=== PATIENT | female | born 1990 | race Caucasian/White ===

== ENCOUNTER → 2016-06-25 | Outpatient (CLI) | payer SELFPAY ==
--- NOTE | 2016-06-26 07:14 | RAD ---
CLINICAL HISTORY:GENERALIZED ABDOMINAL PAIN. :1990.Sex:Female. TECHNIQUE: Supine and upright views of the abdomen. There is no intestinal dilatation. Cholecystectomy clips are noted.There is no mass. There is no free air. There is no opaque calculus. Skeletal structures are unremarkable. The visible lung bases are clear IMPRESSION: 1. No acute radiographic findings.. 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
--- NOTE | 2016-07-15 23:55 | RAD ---
CLINICAL HISTORY:GENERALIZED ABDOMINAL PAIN. :1990.Sex:Female. TECHNIQUE: Supine and upright views of the abdomen. There is no intestinal dilatation. Cholecystectomy clips are noted.There is no mass. There is no free air. There is no opaque calculus. Skeletal structures are unremarkable. The visible lung bases are clear IMPRESSION: 1. No acute radiographic findings.. 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
== END | disposition home or self-care (01) ==
LOC: RAD 14:19
PROVIDERS: ATTEND Nurse Practitioner Family
DX: R10.84 Generalized abdominal pain (principal)

== ENCOUNTER → 2016-07-02 | Outpatient (CLI) | payer SELFPAY ==
--- NOTE | 2016-07-02 13:13 | RAD ---
EXAM DESCRIPTION: Abdomen radiography. CLINICAL HISTORY: Chronic idiopathic constipation COMPARISON: June 25, 2016 TECHNIQUE: One view. FINDINGS: Bowel gas pattern is non-obstructed. There is no obvious free intraperitoneal air. Visualized segments of the abdominal organs are unremarkable. No suspicious bone lesion or fracture is seen. IMPRESSION: No significant abnormality. Electronically signed by: Hema Cuello MD 07/02/2016 13:11
== END | disposition home or self-care (01) ==
LOC: RAD 12:03
PROVIDERS: ATTEND Nurse Practitioner Family
DX: K59.04 Chronic idiopathic constipation (principal)

== ENCOUNTER → 2016-07-06 | Outpatient (CLI) | payer SELFPAY ==
--- NOTE | 2016-07-06 13:27 | RAD ---
EXAM DESCRIPTION: Abdomen radiography. CLINICAL HISTORY: Abdominal pain. COMPARISON: July 02, 2016 TECHNIQUE: One view. FINDINGS: Bowel gas pattern is non-obstructed. There is no obvious free intraperitoneal air. Visualized segments of the abdominal organs are unremarkable. No suspicious bone lesion or fracture is seen. IMPRESSION: Significantly less stool noted within the colon on today's study. Electronically signed by: Hema Cuello MD 07/06/2016 13:26
== END | disposition home or self-care (01) ==
LOC: RAD 10:57
PROVIDERS: ATTEND Nurse Practitioner Family
DX: K59.04 Chronic idiopathic constipation (principal)

== ENCOUNTER → 2016-11-09 | Outpatient (CLI) | payer MEDICAID | END | disposition home or self-care (01) | LOC: LAB.O 10:09 | PROVIDERS: ATTEND Obstetrics & Gynecology | DX: Z34.81 Encounter for supervision of other normal pregnancy, first trimester (principal); Z3A.01 Less than 8 weeks gestation of pregnancy ==

== ENCOUNTER 2016-11-16 22:32 | Emergency (ER) | payer MEDICAID ==
--- NOTE | 2016-11-16 23:11 | ED.PDOC ---
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 She is concerned because she is 7.5 weeks and she had a demise @ 24 weeks with her last . She has no vaginal bleeding or spotting. Denies urinary symptoms but is having frequency. Timing/Duration: yesterday Quality: moderate, sharpness, stabbing Onset Location: suprapubic Radiation: none Activites at Onset: none Sexual intercourse history: single partner Improving Factors: nothing Worsening Factors: nothing Associated Symptoms: abdominal pain, urinary frequency Allergies/Adverse Reactions: Allergies Penicillins Allergy (Verified 05/07/16 14:59) Rash Home Medications: Ambulatory Orders Control Pill 1 each PO DAILY 05/07/16 Naproxen [Naprosyn] 500 mg PO BID PRN #30 tab 05/07/16 Nitrofurantoin Monohydrate Mac [Macrobid] 100 mg PO BID #14 cap 11/16/16 Review of Systems - Review of Systems Constitutional: States: no symptoms reported Respiratory: States: no symptoms reported Cardiology: States: no symptoms reported Gastrointestinal/Abdominal: States: abdominal pain. Denies: constipation, diarrhea, nausea, vomiting Genitourinary: States: see HPI, frequency Musculoskeletal: States: no symptoms reported Skin: States: no symptoms reported All other Systems: No Change from Baseline Past Medical History (General) - Patient Medical History Hx Stroke: No Hx of COPD: Yes Hx Congestive Heart Failure: No Hx Diabetes: No Hx MRSA: No - Vaccination History Hx Tetanus, Diphtheria Vaccination: No Hx Influenza Vaccination: No Hx Pneumococcal Vaccination: No - Social History Hx Tobacco Use: Yes - Female History Patient : No Family Medical History - Family History Father Family History: No Known Living Status: Still Living Physical Exam - Physical Exam General Appearance: Alert, Comfortable, No apparent distress, Well Developed, Well Groomed, Well Hydrated, Well Nourished Cardiovascular/Respiratory: no respiratory distress Gastrointestinal/Abdominal: normal bowel sounds, soft, tenderness - generalized abd tenderness - unchanged from baseline per patient, w/o guarding or rebound. Back Exam: no CVA tenderness Extremity: normal range of motion, non-tender, normal inspection Neurologic: alert, normal mood/affect, oriented x 3 Skin Exam: normal color, warm/dry Progress - Progress Progress: 11/16/16 23:40 Discussed symptoms and urine results. I think her symptoms are from a UTI and not an issue with the . Will start Macrobid and have her follow up with her LEATHER SEASONER next week. - Results/Orders Results/Orders: Laboratory Tests 11/16/16 23:15 Urine Color Yellow Urine Appearance Sl cloudy Urine pH 6.5 Ur Specific [place] 1.015 Urine Protein Negative Urine Glucose (UA) Negative Urine Ketones Negative Urine Blood Trace-intact H Urine Nitrite Negative Urine Bilirubin Negative Urine Urobilinogen 0.2 Ur Leukocyte Esterase Moderate H Urine RBC 1-3 Urine WBC 10-20 H Ur Epithelial Cells 10-20 Urine Bacteria 1+ Urine Trichomonas 1-3 H Departure - Departure Clinical Impression: Urinary tract infection Qualifiers: Urinary tract infection type: acute cystitis Hematuria presence: with hematuria Qualified Code(s): N30.01 - Acute cystitis with hematuria Time of Disposition: 23:41 Disposition: Discharge to Home or Self Care Condition: Good Departure Forms: ED Discharge - Pt. Copy, Patient Portal Self Enrollment Instructions: DI for Urinary Tract Infection (UTI) Diet: resume usual diet Activity: increase activity as tolerated Referrals: ANTONIO JOYCE [facility] WORK[facility] [Primary Care Provider] - 1-2 Weeks Prescriptions: Nitrofurantoin Monohydrate Mac [Macrobid] 100 mg PO BID #14 cap Home Medications: Ambulatory Orders Control Pill 1 each PO DAILY 05/07/16 Naproxen [Naprosyn] 500 mg PO BID PRN #30 tab 05/07/16 Nitrofurantoin Monohydrate Mac [Macrobid] 100 mg PO BID #14 cap 11/16/16 Additional Instructions: Follow up with your OB next week.
[2016-11-16] MEDS ORDERED: NITROFURANTOIN MONOHYDRATE MAC 100 MG CAP PO ONE (23:41)
[2016-11-17 00:40] VITALS: BP 104/71; O2SAT 96
[2016-11-17 01:01] VITALS: TEMP 99.3
== END 2016-11-17 01:01 | disposition home or self-care (01) ==
LOC: ER 22:32
DX: O23.11 Infections of bladder in pregnancy, first trimester (principal); Z3A.01 Less than 8 weeks gestation of pregnancy; J44.9 Chronic obstructive pulmonary disease, unspecified; Z88.0 Allergy status to penicillin; Z79.899 Other long term (current) drug therapy; Z87.891 Personal history of nicotine dependence

== ENCOUNTER 2016-11-22 22:33 | Emergency (ER) | payer MEDICAID, OTHER ==
[2016-11-22] MEDS ORDERED: SODIUM CHLORIDE 0.9% 50ML 50 ML ONE (23:00)
[2016-11-22] MEDS ORDERED: PROMETHAZINE HCL INJ 25 MG/ML VIAL ONE (23:00)
[2016-11-22] MEDS: PROMETHAZINE HCL INJ 25 MG in SODIUM CHLORIDE 0.9% 50ML 50 ML IVPB ONE (23:03)
[2016-11-22] MEDS: SUCRALFATE 1 GM/10 ML 1 GM UD PO ONE (23:03)
[2016-11-22] MEDS ORDERED: LIDOCAINE 1% 10 ML VIAL INJ ONE (23:06)
[2016-11-22] MEDS: cefTRIAXone SODIUM 1 GM VIAL IM ONE (23:06)
[2016-11-22] MEDS: SODIUM CHLORIDE 0.9% 1000ML 1,000 ML IVS ONE (23:06)
[2016-11-22] MEDS: ALUMINUM & MAGNESIUM HYDROXIDE 30 ML UD PO ONE (23:41)
[2016-11-22] MEDS: metroNIDAZOLE 500 MG TAB PO ONE (23:41)
--- NOTE | 2016-11-23 00:54 | ED.PDOC ---
History of Present Illness - General Chief Complaint: GI Problem Stated Complaint: N/V/D Time Seen by Provider: 11/22/16 22:36 Source: patient Exam Limitations: no limitations - History of Present Illness Initial Comments: the patient is a 25-year-old female presenting to the emergency room secondary to nausea and vomiting and diarrhea that started 1-2 hours prior to arrival. The patient has been having some mild nausea with her . She is approximately 8 weeks according to her. She has been having some mild nausea but no real vomiting. She is only been taking her vitamins. The patient started taking Keflex today for a dental infection along with Tylenol 3. Soon after she took her doses of medication she started throwing up and having some diarrhea. No fevers. No blood in the stool or vomitus. She has responded nicely to antibiotics here. She she is not having any abdominal pain. Timing/Duration: 1 hour Severity: moderate Improving Factors: nothing Worsening Factors: nothing Associated Symptoms: nausea/vomiting Allergies/Adverse Reactions: Allergies Metformin Allergy (Severe, Verified 11/22/16 23:00) Rash Penicillins Allergy (Verified 11/22/16 23:00) Rash Home Medications: Ambulatory Orders Nitrofurantoin Monohydrate Mac [Macrobid] 100 mg PO BID #14 cap 11/16/16 Acetaminophen W/ Codeine [Tylenol W/ CODEINE #3] 1 ea PO Q6HR PRN 11/22/16 Cephalexin Monohydrate [Keflex] 500 mg PO BID 11/22/16 Promethazine HCl 25 mg PO Q6H PRN #10 tab 11/23/16 Promethazine HCl [Phenergan] 25 mg [place] Q6H PRN #10 sup 11/23/16 Sucralfate Tab [Carafate Tab] 1 gm PO QID #60 tab 11/23/16 Review of Systems - Review of Systems Constitutional: States: no symptoms reported EENTM: States: mouth pain - dental pain Respiratory: States: no symptoms reported Cardiology: States: no symptoms reported Gastrointestinal/Abdominal: States: nausea, vomiting Genitourinary: States: no symptoms reported Musculoskeletal: States: no symptoms reported Skin: States: no symptoms reported Neurological: States: no symptoms reported Endocrine: States: increased thirst All other Systems: No Change from Baseline Past Medical History (General) - Patient Medical History Hx Seizures: No Hx Stroke: No Hx Dementia: No Hx Asthma: Yes Hx of COPD: No Hx Cardiac Disorders: No Hx Congestive Heart Failure: No Hx Pacemaker: No Hx Hypertension: No Hx Thyroid Disease: No Hx Diabetes: No Hx Gastroesophageal Reflux: Yes Hx Renal Disease: No Hx Cancer: No Hx of HIV: No Hx Hepatitis C: No Hx MRSA: No Surgical History: cholecystectomy, tonsillectomy - Vaccination History Hx Tetanus, Diphtheria Vaccination: - unknown Hx Influenza Vaccination: No Hx Pneumococcal Vaccination: No Immunizations Up to Date: No - Social History Hx Tobacco Use: Yes Hx Chewing Tobacco Use: No Hx Alcohol Use: No Hx Substance Use: No Hx Substance Use Treatment: No Hx Depression: No Feels Threatened In Home Enviroment: No Feels Threatened In a Relationship: No Hx Physical Abuse: No Hx Emotional Abuse: No Hx Suspected Abuse: No - Female History Patient is a Female of Child Bearing Age (10 -59 yrs old): Yes Hx Last Menstrual Period: 09/24/16 Patient : Yes Expected Date of Delivery:: 07/01/17 Hx Gestational Age: 7 Family Medical History - Family History Father Family History: No Known Living Status: Still Living Physical Exam - Physical Exam General Appearance: Alert, No apparent distress Eye Exam: bilateral normal Ears, Nose, Throat: hearing grossly normal, normal pharynx, other - multiple dental caries. The second upper incisor on the leftis the one that appears to be giving her pain. It is fractured. It is affected by cavity. Neck: non-tender, full range of motion, supple, normal inspection Respiratory: chest non-tender, lungs clear, normal breath sounds, no respiratory distress, no accessory muscle use Cardiovascular/Chest: normal peripheral pulses, regular rate, rhythm, no edema Peripheral Pulses: radial,right: 2+, radial,left: 2+, dorsalis pedis,right: 2+, dorsalis pedis,left: 2+ Gastrointestinal/Abdominal: non tender, soft Rectal Exam: deferred Back Exam: normal inspection, no CVA tenderness, no vertebral tenderness Extremity: normal range of motion, non-tender, normal inspection, no pedal edema , normal capillary refill 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 Source of this is not entirely certain. The patient does seem to have some nausea with her . It was likely exacerbated by the new medications today. It is also possible that she simply has a acute viral gastroenteritis. The patient has responded well to IV fluids and antibiotics. She did receive 1 dose of IM Rocephin here for the dental infection. The patient will be written for Phenergan to help control vomiting as well as for Carafate to help with her upset stomach for the next 2 weeks. She should hold the Keflex for the next 24 hours. She should hold the vitamin for about 3 days. She needs to keep herself well-hydrated. 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 She needs to keep follow-up with her four corner former machine operator. ER warnings were given. 11/23/16 01:06 Departure - Departure Clinical Impression: Gastroenteritis Disposition: Discharge to Home or Self Care Condition: Fair Departure Forms: ED Discharge - Pt. Copy, Patient Portal Self Enrollment Instructions: DI for Gastritis Diet: bland diet Activity: increase activity as tolerated Referrals: ANTONIO JOYCE IV, FNP [Primary Care Provider] - 1-5 Days Prescriptions: Promethazine HCl 25 mg PO Q6H PRN #10 tab PRN Reason: Vomiting Promethazine HCl [Phenergan] 25 mg [place] Q6H PRN #10 sup PRN Reason: Nausea/Vomiting Sucralfate Tab [Carafate Tab] 1 gm PO QID #60 tab Home Medications: Ambulatory Orders Nitrofurantoin Monohydrate Mac [Macrobid] 100 mg PO BID #14 cap 11/16/16 Acetaminophen W/ Codeine [Tylenol W/ CODEINE #3] 1 ea PO Q6HR PRN 11/22/16 Cephalexin Monohydrate [Keflex] 500 mg PO BID 11/22/16 Promethazine HCl 25 mg PO Q6H PRN #10 tab 11/23/16 Promethazine HCl [Phenergan] 25 mg [place] Q6H PRN #10 sup 11/23/16 Sucralfate Tab [Carafate Tab] 1 gm PO QID #60 tab 11/23/16 Additional Instructions: the patient is a 25-year-old female presenting to the emergency room secondary to acute onset nausea and vomiting and diarrhea. Source of this is not entirely certain. The patient does seem to have some nausea with her . It was likely exacerbated by the new medications today. It is also possible that she simply has a acute viral gastroenteritis. The patient has responded well to IV fluids and antibiotics. She did receive 1 dose of IM Rocephin here for the dental infection. The patient will be written for Phenergan to help control vomiting as well as for Carafate to help with her upset stomach for the next 2 weeks. She should hold the Keflex for the next 24 hours. She should hold the vitamin for about 3 days. She needs to keep herself well-hydrated. 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 She needs to keep follow-up with her four corner former machine operator. ER warnings were given.
[2016-11-23 01:19] VITALS: BP 109/69; TEMP 98; O2SAT 98
== END 2016-11-23 01:19 | disposition home or self-care (01) ==
LOC: ER 22:33
DX: O99.611 Diseases of the digestive system complicating pregnancy, first trimester (principal); K52.9 Noninfective gastroenteritis and colitis, unspecified; J45.909 Unspecified asthma, uncomplicated; Z3A.08 8 weeks gestation of pregnancy; Z87.891 Personal history of nicotine dependence; Z88.0 Allergy status to penicillin; Z88.8 Allergy status to other drugs, medicaments and biological substances; Z79.899 Other long term (current) drug therapy
CPT/HCPCS: A4216; J0696; J2550; J7030

== ENCOUNTER → 2017-02-06 | Outpatient (CLI) | payer OTHER | END | disposition home or self-care (01) | LOC: LAB.O 07:45 | PROVIDERS: ATTEND Obstetrics & Gynecology | DX: O34.29 Maternal care due to uterine scar from other previous surgery (principal) ==

== ENCOUNTER → 2017-03-12 | Outpatient (CLI) | payer OTHER | END | disposition home or self-care (01) | LOC: LAB.O 07:43 | PROVIDERS: ATTEND Obstetrics & Gynecology | DX: E11.9 Type 2 diabetes mellitus without complications (principal); Z34.92 Encounter for supervision of normal pregnancy, unspecified, second trimester ==

== ENCOUNTER → 2017-03-28 | Outpatient (CLI) | payer OTHER | LOC: LAB.O 08:19 | PROVIDERS: ATTEND Obstetrics & Gynecology | DX: O99.810 Abnormal glucose complicating pregnancy (principal) ==

== ENCOUNTER → 2019-04-21 | Outpatient (CLI) | payer OTHER ==
--- NOTE | 2019-04-21 20:00 | US ---
EXAM DESCRIPTION: Pelvic,Non-OB: Ultrasound. CLINICAL HISTORY: 28 years Female UNSPECIFIED ABDOMINAL PAIN COMPARISON: Ultrasound abdomen April 2018. TECHNIQUE: Transcutaneous scanning through the urine filled bladder. Endovaginal scanning. Morris-scale and Doppler modes. FINDINGS: Uterus 11.9 x 5.7 x 4.4 cm. 156 mL. Endometrium 12.1 mm.. Myometrium heterogeneous. Slightly hyperechoic mass with circumscribed margins measuring 3.2 x 2.5 x 1.9 cm abutting the anterior endometrium. Nonvascular. Second mass also heterogeneous measuring 3.1 x 2.2 x 1.9 cm also on the anterior uterine surface. Uterus not retroverted. Cervix unremarkable. Cul-de-sac: No fluid.. Right ovary 3.3 x 3.0 x 2.3 cm. 12.0 mL. Normal waveform and color Doppler vascularity. 2.4 x 2.2 x 1.8 cm simple cyst. No adnexal mass or free fluid. Left ovary 2.5 x 2.3 x 1.9 cm. 5.8 mL. Normal waveform and color Doppler vascularity. Small follicles but no cysts. No adnexal mass or free fluid. IMPRESSION: 1. Uterus enlarged with at least 2 fibroids, 3.2 cm and 2.1 cm, and thickening of endometrium. No fluid in the endometrial cavity. Normal position of the uterus. No fluid in the cul-de-sac. 2. Left ovary unremarkable with small follicles. Right ovary minimally enlarged. 2.4 cm simple right ovarian cyst. No follow-up imaging is recommended. Reference: Radiology 2009;256(3):943-86 Electronically signed by: Jonathan Huffman MD 04/21/2019 7:59 PM [facility]
== END ==
LOC: US 09:24
PROVIDERS: ATTEND Emergency Medicine
DX: D25.9 Leiomyoma of uterus, unspecified (principal); R93.89 Abnormal findings on diagnostic imaging of other specified body structures; N83.201 Unspecified ovarian cyst, right side

== ENCOUNTER → 2019-05-07 | Outpatient (CLI) | payer OTHER ==
--- NOTE | 2019-05-07 15:15 | CT ---
Procedure: CT CHEST ANGIOGRAPHY WITH IV CONTRAST Exam Date: 05/07/2019 Ordering Provider: DANISH MARTIN Clinical Indication: DYSPNEA ON EXERTION Comparison: None Technique: Using a multislice scanner, sequential axial imaging was obtained in the thorax from the level of the thoracic inlet through the lung bases after intravenous contrast administration. The contrast bolus was timed to evaluate the pulmonary arteries for thrombus. MIP coronal and sagittal reformatted images were obtained. This exam was performed according to our departmental dose optimization program which includes use of automated exposure control, adjustment of the mA and/or kV according to patient size and/or use of iterative reconstruction technique. Findings: There are no pulmonary emboli. Lungs and large airways: No focal lung consolidation. Minimal atelectasis in the dependent lower lobes. Mediastinum and bill: No lymphadenopathy. Probable residual thymus in the anterior mediastinum. Pleura: No pleural effusion. No pneumothorax. Heart and great vessels: Heart is not enlarged. No pericardial effusion. No aortic aneurysm. Chest wall, lower neck, axillae: No axillary lymphadenopathy Upper abdomen: Prior cholecystectomy. Hepatic steatosis. Bones: Unremarkable IMPRESSION: 1. No pulmonary embolism. 2. Hepatic steatosis. Electronically signed by: Srinath Prieto MD 05/07/2019 3:14 PM GROUND CREW LINES PERSON
== END ==
LOC: CT 09:00
PROVIDERS: ATTEND Emergency Medicine
DX: R06.09 Other forms of dyspnea (principal); K76.0 Fatty (change of) liver, not elsewhere classified

== ENCOUNTER → 2019-09-16 | Outpatient (CLI) | payer OTHER ==
--- NOTE | 2019-09-16 15:07 | MRI ---
EXAM DESCRIPTION: Lumbar Spine w/o Contrast : Magnetic Resonance Imaging. CLINICAL HISTORY: lumbosacral radiculitis COMPARISON: MRI scan lumbar spine without contrast October 2017. TECHNIQUE: Multiplanar, multiple standard sequences, non contrast MRI, lumbar spine. FINDINGS: L5-S1: The disc is well visualized on axial T2 series 501, image 3. Normal signal in the disc. Minimal disc space loss. Minimal posterior midline bulge. Canal elements (posterior flavum ligaments and facet joints) are unremarkable. Bilaterally shortened pedicles. AP canal diameter 12 mm. Bilateral mild foraminal narrowing. L4-L5: Disc desiccation with disc space maintained. No bulging. Canal elements unremarkable. Bilaterally shortened pedicles. AP canal diameter 13 mm. Bilateral foramina are patent. L3-L4: Normal signal in the disc with disc space preserved. Canal elements unremarkable. Bilaterally shortened pedicles. AP canal diameter 12 mm. Left foramen patent with mild narrowing right foramen. L2-L3: Normal signal in the disc with anterior disc space loss. No bulging. Canal elements are unremarkable. Bilaterally shortened pedicles. AP canal diameter 12 mm. Bilateral foramina are patent. L1-L2: Normal signal in the disc with disc space preserved. No bulging. Canal elements unremarkable. Canal and bilateral foramina are patent. Conus terminates just above the disc space. T12-L1: Normal signal in the disc with disc space preserved. Canal elements unremarkable. Canal and foramina are patent. No scoliosis. Paravertebral soft tissues unremarkable.. Distal cord normal signal and caliber. Otherwise normal marrow signal in the remaining vertebral bodies and the posterior elements. Vertebral bodies are not compressed at any level. IMPRESSION: 1. Bilaterally shortened pedicles at multiple levels contributing to canal narrowing. No canal or foraminal stenosis at any level. No significant disc bulging or herniation. Posterior flavum ligaments and the facet joints showing no significant arthrosis or hypertrophy. Stable to the prior outside study from October 2017.. Electronically signed by: Jonathan Huffman MD 09/16/2019 3:05 PM CDT
== END ==
LOC: MRI 09:00
PROVIDERS: ATTEND Emergency Medicine
DX: M54.17 Radiculopathy, lumbosacral region (principal); Q76.49 Other congenital malformations of spine, not associated with scoliosis

== ENCOUNTER → 2019-12-22 | Outpatient (CLI) | payer OTHER | LOC: LAB.O 15:15 | PROVIDERS: ATTEND Internal Medicine Hematology & Oncology | DX: D72.828 Other elevated white blood cell count (principal) ==